=== PATIENT | male | born 1970 ===

== ENCOUNTER 2018-04-15 11:14 | Emergency (ER) | payer OTHER ==
[2018-04-15 11:45] VITALS: BP 124/71; PULSE 68; RESP 20; TEMP 99.4; O2SAT 96
--- NOTE | 2018-04-15 12:51 | C.PDOC ---
History Of Present Illness 48 year old male presents to the emergency department with complaints of left lower back pain persisting for the last six days. Patient reports that his pain is worse when he goes from a seated position to a standing position, but he denies numbness, tingling, saddle anesthesia, bladder/bowel dysfunction, or trauma. 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 He states he occasionally takes 200mg Motrin with no relief. Time Seen by Provider: 04/15/18 12:05 Chief Complaint (Nursing): Back Pain History Per: Patient History/Exam Limitations: no limitations Onset/Duration Of Symptoms: Days (6) Current Symptoms Are (Timing): Still Present Quality Of Discomfort: "Pain" Previous Symptoms: Back Pain Associated Symptoms: denies: Incontinence, New Weakness, New Numbness, Other ( saddle anesthesia) Exacerbating Factor(s): Other (changing position from sitting to standing) Past Medical History Reviewed: Historical Data, Nursing Documentation, Vital Signs Vital Signs: Last Vital Signs Temp 99.4 F 04/15/18 11:43 Pulse 68 04/15/18 11:43 Resp 20 04/15/18 11:43 BP 124/71 04/15/18 11:43 Pulse Ox 96 04/15/18 12:56 - Medical History PMH: No Chronic Diseases Surgical History: No Surg Hx Family History: States: No Known Family Hx - Social History Hx Alcohol Use: No Hx Substance Use: No - Immunization History Hx Tetanus Toxoid Vaccination: No Hx Influenza Vaccination: No Hx Pneumococcal Vaccination: No Review Of Systems Gastrointestinal: Negative for: Diarrhea, Constipation Genitourinary: Negative for: Dysuria, Frequency, Incontinence Musculoskeletal: Positive for: Back Pain Neurological: Negative for: Numbness, Other (tingling, saddle anesthesi) Physical Exam - Physical Exam Appears: Well, Non-toxic, No Acute Distress Skin: Warm, Dry Head: Atraumatic, Normacephalic Eye(s): bilateral: Normal Inspection Nose: Normal Neck: Normal, Supple Chest: Symmetrical Cardiovascular: Rhythm Regular Respiratory: Normal Breath Sounds, No Rales, No Rhonchi, No Wheezing Gastrointestinal/Abdominal: Normal Exam, Soft, No Tenderness, No Guarding, No Rebound Back: Normal Inspection, No CVA Tenderness, No Vertebral Tenderness, Paraspinal Tenderness (left sided) Extremity: Normal ROM Neurological/Psych: Oriented x3, Normal Speech, Normal Cognition, Normal Motor, Normal Sensation, Normal Reflexes, Other (no focal deficits) ED Course And Treatment O2 Sat by Pulse Oximetry: 96 (RA) Pulse Ox Interpretation: Normal Progress Note: Plan: Toradol 30mg IM Medical Decision Making Medical Decision Making: pt with left low back pain x 6 days, no trauma no neuro findings. worse with movement. pt feeling better after toradol. d/c home with nsaids and flexeril Disposition Counseled Patient/Family Regarding: Diagnosis, Need For Followup, Rx Given - Disposition Referrals: [facility] [Outside] Disposition: HOME/ ROUTINE Disposition Time: 13:00 Condition: IMPROVED Additional Instructions: Por favor, tome ibuprofeno para el dolor segn lo recetado, con alimentos. [place] relajante muscular a la hora de acostarse o cuando no est trabajando, (si es necesario) ya que le da sueo. Clido comprime el ailin dolorida varias veces al da. Evan un seguimiento con larsen mdico en unos gresham. Evite levantar objetos pesados. Regrese a la blayne de emergencias por cualquier sntoma peor. Please take ibuprofen for pain as prescribed, with food. Take muscle relaxant at bedtime or when not working, (if needed) since it makes you sleepy. Warm compresses to painful area several times a day. Follow up with your doctor in a few days. Avoid heavy lifting. Return to ER for any worse symptoms. Prescriptions: Cyclobenzaprine [Cyclobenzaprine HCl] 10 mg PO Q8 #9 tab Ibuprofen [Motrin] 600 mg PO TID #30 tab Instructions: Muscle Spasms (DC) Forms: Gen Discharge Inst Armenian, [facility] (Armenian), Work Excuse - Clinical Impression Clinical Impression: Spasm of muscle of lower back - PA / [employer] / Resident Statement MD/DO has reviewed & agrees with the documentation as recorded. - Scribe Statement The provider has reviewed the documentation as recorded by the Scribe (Erich Villegas) All medical record entries made by the Scribe were at my direction and personally dictated by me. I have reviewed the chart and agree that the record accurately reflects my personal performance of the history, physical exam, medical decision making, and the department course for this patient. I have also personally directed, reviewed, and agree with the discharge instructions and disposition.
== END 2018-04-15 13:12 | disposition home or self-care (01) ==
LOC: C.ER 11:14
DX: M62.830 Muscle spasm of back (principal)
CPT/HCPCS: 96372; 99283; J1885